=== PATIENT | female | born 2000 | race Hispanic/Latino ===

== ENCOUNTER 2023-08-13 18:00 | Inpatient (IN) | payer MEDICAID, OTHER ==
[2023-08-13] MEDS ORDERED: Carboprost 250 MCG/ML AMP IM PRN (20:58)
[2023-08-13] MEDS ORDERED: Tranexamic Acid 1,000 MG/10 ML VIAL IVP PRN (20:58)
[2023-08-13] MEDS ORDERED: HYDROcodone/Acetaminophen 5/325 mg Tablet PO PRN (20:58)
[2023-08-13] MEDS ORDERED: Misoprostol 200 MCG TAB PR PRN (20:58)
[2023-08-13] MEDS ORDERED: Ondansetron PF 4 MG/2 ML Vial IVP PRN (20:58)
[2023-08-13] MEDS ORDERED: Methylergonovine 0.2 MG/ML VIAL IM PRN (20:58)
[2023-08-13] MEDS ORDERED: Acetaminophen 500 MG TAB PO PRN (20:58)
[2023-08-13] MEDS ORDERED: hydrALAZINE 20 MG/ML VIAL SLOW IVP PRN (20:58)
[2023-08-13] MEDS ORDERED: Oxytocin 30 units/NS 500 ML 500 ML IV SCH ×3 (20:58)
[2023-08-13] MEDS ORDERED: Lidocaine 1% (PF) 30 ML VIAL SC PRN (20:58)
[2023-08-13] MEDS ORDERED: fentaNYL 50 mcg/mL 1 mL Vial SLOW IVP PRN (20:58)
[2023-08-13] MEDS ORDERED: Ibuprofen 800 MG TAB PO PRN (20:58)
[2023-08-13] MEDS ORDERED: Promethazine HCl 25 MG/ML VIAL IM PRN (20:58)
[2023-08-13] MEDS ORDERED: Diphenoxylate HCl/Atropine Tablet PO PRN (20:58)
[2023-08-13] MEDS: Lactated Ringer's 1,000 ML IV SCH (21:00)
[2023-08-13 21:12] VITALS: BMI 29.8
[2023-08-13] MEDS: Misoprostol 100 MCG TAB PO SCH (21:40)
[2023-08-13 22:00] LABS: Hematocrit 36.4 % (34.9-44.5); Hemoglobin 12.2 g/dL (12.0-15.5); Mean Corpuscular HGB CONC 33.5 g/dL (32.0-36.0); Mean Corpuscular Hemoglobin 30.3 pg (27.0-33.0); Mean Corpuscular Volume 90.5 fl (81.6-98.3); Mean Platelet Volume 11.7 fl (7.4-10.4); Platelet Count 207 10x3/uL (150-450); RBC Distribution Width 14.1 % (11.5-14.5); Red Blood Cell (RBC) Count 4.02 10x6/uL (3.90-5.03); White Blood Cell (WBC) Count 7.6 10x3/uL (3.5-10.5)
[2023-08-13 23:21] LABS: Syphilis Antibody Nonreactive (Nonreactive); Syphilis Antibody Index 0.03 S/CO (<1.00 Non-Reactive)
[2023-08-13 23:23] LABS: HBSAg Index 0.19 S/CO (0-0.99); Hep B Surf Ag - L&D Non-Reactive S/CO (NonReactive)
[2023-08-14] MEDS: Misoprostol 100 MCG TAB PO SCH ×2 (00:58→04:13)
[2023-08-14] MEDS ORDERED: fentaNYL/Ropivacaine Epidural 100 ML ONE (01:36)
[2023-08-14] MEDS ORDERED: Boostrix 0.5 ML (Tdap) VIAL (>/=7 yrs of age) IM ONE (05:00)
[2023-08-14] MEDS ORDERED: hydrALAZINE 20 MG/ML VIAL SLOW IVP PRN (05:00)
[2023-08-14] MEDS ORDERED: Benzocaine-Menthol 82.5 ML CAN TOP PRN (05:00)
[2023-08-14] MEDS ORDERED: Lanolin Ointment 7 GM TUBE TOP PRN (05:00)
[2023-08-14] MEDS ORDERED: diphenhydrAMINE 25 MG CAP PO PRN (05:00)
[2023-08-14] MEDS ORDERED: Ondansetron PF 4 MG/2 ML Vial IVP PRN (05:00)
[2023-08-14] MEDS ORDERED: Promethazine HCl 25 MG/ML VIAL IM PRN (05:00)
[2023-08-14] MEDS ORDERED: Bisacodyl 10 MG SUPP PR PRN (05:00)
[2023-08-14] MEDS ORDERED: Milk Of Magnesia 30 ML UDCUP PO PRN (05:00)
[2023-08-14] MEDS: Ibuprofen 800 MG TAB PO SCH ×3 (07:33→23:14)
[2023-08-14] MEDS: Lactated Ringer's 1,000 ML IV SCH (07:33)
[2023-08-14] MEDS: Prenatal Vitamin 1 TAB PO SCH (08:18)
[2023-08-14] MEDS: Docusate 100 MG CAP PO SCH ×2 (08:19→23:14)
[2023-08-14] MEDS: Ferrous Sulfate 325 MG TAB PO SCH ×2 (08:19→20:40)
[2023-08-14] MEDS: HYDROcodone/Acetaminophen 5/325 mg Tablet PO PRN ×2 (14:48→20:45)
[2023-08-15] MEDS: Ibuprofen 800 MG TAB PO SCH (06:45)
[2023-08-15] MEDS: Prenatal Vitamin 1 TAB PO SCH (07:44)
[2023-08-15] MEDS: Ferrous Sulfate 325 MG TAB PO SCH (07:44)
[2023-08-15] MEDS: Docusate 100 MG CAP PO SCH (07:44)
[2023-08-15 08:05] VITALS: BP 104/55; TEMP 97.6
== END 2023-08-15 10:50 | disposition home or self-care (01) | DRG 807 ==
LOC: CSHLD 18:57 → CSHPP 08-14 05:20
PROVIDERS: ADMIT Family Medicine; ATTEND Family Medicine
PROC: 10E0XZZ Delivery of Products of Conception, External Approach (ICD-10-PCS; principal; 2023-08-14)
PROC: 3E0P7VZ Introduction of Hormone into Female Reproductive, Via Natural or Artificial Opening (ICD-10-PCS; 2023-08-14)
DX: O36.5930 Maternal care for other known or suspected poor fetal growth, third trimester, not applicable or unspecified (principal); Z37.0 Single live birth; Z3A.39 39 weeks gestation of pregnancy
CPT/HCPCS: 36415; 51702; 85027; 86780; 86850; 86900; 86901; 87340; J7120